=== PATIENT | male | born 2000 | race Caucasian/White ===

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

== ENCOUNTER 2024-01-27 06:29 | Emergency (ER) | payer BC ==
[2024-01-27 06:38] VITALS: PULSE 60
--- NOTE | 2024-01-27 06:58 | ED ---
Skin/Abscess/FB HPI - General Chief complaint: Skin/Abscess/Foreign Body Stated complaint: rash itching on hands knees and back of feet Time Seen by Provider: 01/27/24 06:40 Source: patient, family, RN notes reviewed Mode of arrival: ambulatory Limitations: no limitations - History of Present Illness Initial comments: This is a 23-year-old male who presents to the emergency department for a rash. Patient states that he noticed a rash on his hands and knees a couple of days ago. This affects the back and palms of his hands. Denies coming into contact with any new soaps/detergents or being outside. 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 He has been taking Benadryl and using hydrocortisone cream without any relief in symptoms. He has had similar rashes in years past, but never this severe. The rash is described as itchy and not painful. However, it is primarily itchy in the supervisor rolling room and at night and tends to be better throughout the middle of the day. Denies any fever/chills. Nobody else in his household has this rash. MD complaint: rash - Related Data Previous Rx's Medication Instructions Recorded Permethrin 5% Cream [Elimite] 1 applic TOPICAL ONCE #60 gm 01/27/24 hydrOXYzine HCL [Atarax] 25 mg PO QID PRN #20 tab 01/27/24 predniSONE 50 mg PO DAILY 5 Days #5 tab 01/27/24 Allergies Allergy/AdvReac Type Severity Reaction Status Date / Time No Known Allergies Allergy Verified 01/27/24 06:37 Review of Systems ROS Statement: Those systems with pertinent positive or pertinent negative responses have been documented in the HPI. ROS Other: All systems not noted in ROS Statement are negative. Past Medical History Past Medical History: No Reported History History of Any Multi-Drug Resistant Organisms: None Reported Past Surgical History: No Surgical Hx Reported Past Psychological History: No Psychological Hx Reported Smoking Status: Never smoker Past Alcohol Use History: None Reported Past Drug Use History: None Reported General Exam Limitations: no limitations General appearance: alert, in no apparent distress Head exam: Present: atraumatic, normocephalic, normal inspection Respiratory exam: Present: normal lung sounds bilaterally. Absent: respiratory distress, wheezes, rales, rhonchi, stridor Cardiovascular Exam: Present: regular rate, normal rhythm, normal heart sounds. Absent: systolic murmur, diastolic murmur, rubs, gallop, clicks Neurological exam: Present: alert, oriented X3, CN II-XII intact Psychiatric exam: Present: normal affect, normal mood Skin exam: Present: other (Raised maculopapular erythematous lesions on the bilateral palms and soles. Clustered erythematous papular patches on the bilateral patella.) Course Vital Signs 01/27/24 01/27/24 06:34 07:55 Temperature 97.6 F 98.1 F Pulse Rate 60 60 Respiratory 16 18 Rate Blood Pressure 122/83 126/76 O2 Sat by Pulse 98 100 Oximetry Medical Decision Making - Medical Decision Making This is a 23-year-old male who presents to the emergency department for a rash. Was pt. sent in by a medical professional or institution? @ -No Did you speak to anyone other than the patient for history? @ -No Did you review nursing and triage notes? @ -Yes, and I agree, it is accurate with regards to the patient's symptoms. Were old charts reviewed? @ -No Differential Diagnosis? @ -Differential Rash: Roseola, measles, Lyme disease, erythema multiforme, cellulitis, toxic shock syndrome, Dustin Jeffy syndrome, Kawasaki disease, curt mountain spotted fever, contact dermatitis, allergic dermatitis, measles, mumps, rubella, varicella, meningococcal disease, drug reaction, coxsackievirus, This is not meant to be an all-inclusive list. EKG interpreted by me (3pts min.)? @ -Not obtained X-rays interpreted by me (1pt min.)? @ -Not obtained CT interpreted by me (1pt min.)? @ -Not obtained U/S interpreted by me (1pt. min.)? @ -Not obtained What testing was considered but not performed? (CT, X-rays, U/S, labs)? Why? @ -None What meds were considered but not given? Why? @ -None Did you discuss the management of the patient with other professionals? @ -No Did you reconcile home meds? @ -No Was smoking cessation discussed for >3mins.? @ -No Was critical care preformed (if so, how long)? @ -No Were there social determinants of health that impacted care today? How? (Homelessness, low income, unemployed, alcoholism, drug addiction, transportation, low edu. Level, literacy, decrease access to med. care, [facility], rehab)? @ -No Was there de-escalation of care discussed even if they declined? (Discuss DNR or withdrawal of care, Hospice)? @ -No What co-morbidities impacted this encounter? (DM, HTN, Smoking, COPD, CAD, Cancer, CVA, Hep., AIDS, mental health diagnosis, sleep apnea, morbid obesity)? @ -None Was patient admitted / discharged? @ -Discharged. Patient evaluated by both myself and ED attending Dr. Sin. He had raised erythematous papular and somewhat pustular lesions. 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 Discussed with the patient and his mother that scabies itching is classically worse at night. We cannot definitively say that this is the cause of his symptoms, it could also be related to an eczema or contact dermatitis. Will treat patient for scabies and eczema/dermatitis to cover for both. Rx for permethrin cream and 5-day course of prednisone provided with dosing instructions reviewed. He was also given a prescription for Atarax to see if that is more effective than the Benadryl for the itching. Patient discharged home in stable condition and advised to follow up with this PCP. Undiagnosed new problem with uncertain prognosis? @ -None Drug Therapy requiring intensive monitoring for toxicity (Heparin, Nitro, Insulin, Cardizem)? @ -None Were any procedures done? @ -None Diagnosis/symptom? @ -Rash Acute, or Chronic, or Acute on Chronic? @ -Acute Uncomplicated (without systemic symptoms) or Complicated (systemic symptoms)? @ -Uncomplicated Side effects of treatment? @ -None Exacerbation, Progression, or Severe Exacerbation] @ -Not applicable Poses a threat to life or bodily function? @ -No Return precautions reviewed in depth, the patient is instructed to return to the emergency department with any new, worsening, or concerning symptoms. Patient verbalized understanding. This case was discussed in detail with the attending ED physician, Dr. Sin. Presentation, findings, and treatment plan discussed in detail as well. Disposition Clinical Impression: Rash Disposition: HOME SELF-CARE Instructions (If sedation given, give patient instructions): Scabies (ED), Acute Rash (ED) Additional Instructions: Return to the emergency department with any new, worsening, or concerning symptoms. Apply the permethrin cream from the neck down and leave on for 8 to 12 hours before washing off. Repeat this in 1 week if symptoms persist. You can take the Atarax up to 4 times daily for itching. See if this is more effective than the Benadryl, but you do not need to take them together. Take the Prednisone daily for 5 days. You can apply the triamcinolone and calamine creams provided in the emergency department up to 3-4 times daily to help with itching as well. Do not apply the hydrocortisone cream with the triamcinolone cream, the triamcinolone cream is stronger. Follow up with your primary care provider in 1-2 days. Prescriptions: hydrOXYzine HCL [Atarax] 25 mg PO QID PRN #20 tab PRN Reason: Itching Permethrin 5% Cream [Elimite] 1 applic TOPICAL ONCE #60 gm predniSONE 50 mg PO DAILY 5 Days #5 tab Is patient prescribed a controlled substance at d/c from ED?: No Referrals: Dimitri Das DO [Primary Care Provider] - 1-2 days Time of Disposition: 07:37
[2024-01-27] MEDS: CALAMINE/ZINC OXIDE LOTION 177 ML BTL TOPICAL STA (07:51)
[2024-01-27] MEDS: TRIAMCINOLONE ACET 0.5% CREAM 15 GM TUBE TOPICAL STA (07:51)
[2024-01-27 08:27] VITALS: BP 126/76; RESP 18; TEMP 98.1
== END 2024-01-27 07:55 | disposition home or self-care (01) ==
LOC: EC 06:29
DX: R21 Rash and other nonspecific skin eruption (principal)
CPT/HCPCS: 99282